=== PATIENT | male | born 1985 | race Caucasian/White ===

== ENCOUNTER 2024-06-21 20:08 | Emergency (ER) | payer BC, SELFPAY ==
[2024-06-21 20:10] VITALS: BP 156/100
--- NOTE | 2024-06-21 21:36 | ED.GENMED ---
History of Present Illness
General
Chief Complaint: Foreign Body Ingestion
Source: patient
Exam Limitations: none
Time Seen by Provider: 06/21/24 21:18
History of Present Illness
History of Present Illness:
38-year-old male who presents after he swallowed a washer yesterday. Patient states he often chews on metallic objects because gives him a flavor of nicotine after he smokes cigarette. Patient states he was smoking a cigarette and chewing a washer
when he suddenly choked on it. States he could not get it up so he swallowed it. States otherwise has been fine. He did vomit this morning but has been feeling fine since then. He presents only because family and friends advised him to come to ""hospital for evaluation. The patient admits he smokes almost 3 packs of cigarettes a day. No abdominal pain. No fevers. No melena or hematochezia.
Past History
Past History
ED Past Medical History: Other
ED Past Surgical History: Other
Social History
Tobacco: Smoker (Started smoking at 8 years old)
Alcohol: None
Personal: Single
Living: with family
Employment: Employed (lays [employer])
Family History
Family History: Negative Diabetes, Hypertension or CAD
Phy Exam
Physical Exam
Physical Exam:
CONSTITUTIONAL Vital signs reviewed, Patient alert and oriented to person, place and time. Well-appearing
HEAD atraumatic, normocephalic.
EYES eyelids normal to inspection, Extraocular muscles intact, Conjunctiva normal, Sclera normal.
NECK normal range of motion, Trachea midline, no jugular venous distention.
RESP no respiratory distress
BACK No obvious deformities
UPPER EXTREMITY Gross Range of motion normal, gross motor strength normal
LOWER EXTREMITY Gross range of motion normal, Gross motor strength normal
NEURO Speech normal, No focal motor deficits include, [place] coma scale 15, Memory normal, Cranial Nerves intact to screening exam.
SKIN Skin warm, dry, and normal in color.
PSYCHIATRIC Patient oriented to person place and time, Normal affect.
Course
Orders/Labs/Results
Orders:
Orders
06/21/24 20:15
CR Chest Single View Urgent
Comment:
Reason For Exam: FB ingestion; metal washer
06/21/24 20:23
Abdomen Xray - 1 View [CR Abdomen - 1 View] Urgent
Comment:
Reason For Exam: possible foreign body ingestion
Vital Signs
Initial and Last Documented VS:
Initial Vital Signs
Temp Pulse Resp BP Pulse Ox
98.2 F 102 16 156/100 99
06/21/24 20:10 06/21/24 20:10 06/21/24 20:10 06/21/24 20:10 06/21/24 20:10
Last Documented Vital Signs
Temp Pulse Resp BP Pulse Ox
98.2 F 102 16 145/104 99
06/21/24 20:10 06/21/24 20:10 06/21/24 20:10 06/21/24 21:41 06/21/24 20:10
MDM/Problems Addressed
MDM/Problems Addressed:
Foreign body ingestion
*Radiology
Radiology exam reviewed: preliminary read by ED provider (Round foreign body noted that appears past the level of the stomach.)
*Pulse Oximetry
Patient hypoxic: no
*Critical Care Note
Total Time (30-74mins, 75-104mins- exclusive of procedures): Not Applicable
Data Reviewed
Source: patient
Prescriptions/Medications Considered But Not Given:
Considered antihypertensives. Patient will follow-up as outpatient
Patient Management
Escalation/DeEscalation of care consider admission/obs:
Foreign body appears to be past the level of the stomach. No symptoms. At this point given the nature of the object and the fact that his past his esophagus and stomach, continue to monitor stools and okay for discharge. He will return for any
worsening symptoms. We did discuss the importance of smoking cessation for more than 15 minutes. He agrees that he will start working on it.
ED Attending Note
-
Portions of this chart may have been created with voice recognition software.� Occasional wrong word or��sound alike� substitutions may have occurred due to the inherent limitations of voice recognition software.
Discharge Plan
Departure
Patient Disposition: Home (Routine Discharge)
Date of Disposition: 06/21/24
Time of Disposition: 21:37
Patient with high blood pressure during this ER visit?: Yes
Discharge Problem:
Foreign body ingestion
Instructions: Swallowed Objects, Adult (DC), Quitting smoking - ED discharge instructions, BLOOD PRESSURE
Prescriptions:
No Action
No Current Medications
0
Activity Restrictions/Additional Instructions:
Please avoid placing any nonedible product in your mouth as discussed. Please work on smoking cessation as discussed. Please return immediately for vomiting, fevers, pain, shortness of breath or any other concerns. Monitor your stools for foreign
body passage
Your blood pressure was elevated while in the Emergency Department, please have your doctor re-evaluate it in the next 48 hours as untreated hypertension may lead to serious complications.
Discharge Date and Time
Print Language: PASHTO
[2024-06-21 21:41] VITALS: BP 145/104
== END 2024-06-21 22:15 | disposition home or self-care (01) ==
LOC: EMR 20:08
PROVIDERS: EMERGENCY PHYSICIAN Emergency Medicine
DX: T18.9XXA Foreign body of alimentary tract, part unspecified, initial encounter (principal); W44.9XXA Unspecified foreign body entering into or through a natural orifice, initial encounter; F17.210 Nicotine dependence, cigarettes, uncomplicated
CPT/HCPCS: 99283; 71045; 74018